=== PATIENT | male | born 1955 | race Hispanic/Latino ===

== ENCOUNTER → 2024-03-30 | Outpatient (CLI) | payer BC, MEDICARE ==
--- NOTE | 2024-03-30 11:53 | HMCIMG ---
US RENAL SONOGRAM HISTORY: Microscopic hematuria COMPARISON: None TECHNIQUE: Renal and bladder ultrasound study was performed. FINDINGS: The right kidney measures 10.8 x 4.9 x 4.5 cm. The left kidney measures 11.2 x 5.3 x 3.4 cm. No evidence of hydronephrosis is seen of either kidney. Both kidneys are seen. Bladder is moderately distended. Prevoid bladder volume is 298 cc. Post void bladder volume is 59 cc. Bladder wall measures 4 mm. Prostate measures 12 cc. Bilateral ureteral jets are seen. IMPRESSION: 1. No hydronephrosis is seen.
== END | disposition home or self-care (01) ==
LOC: RAH 09:24
PROVIDERS: ATTEND Urology
DX: N32.89 Other specified disorders of bladder (principal); N28.89 Other specified disorders of kidney and ureter; R31.29 Other microscopic hematuria
CPT/HCPCS: 76770